=== PATIENT | female | born 1965 | race Caucasian/White ===

== ENCOUNTER → 2018-03-12 | Outpatient (CLI) | payer OTHER ==
--- NOTE | 2018-03-18 13:28 | Diagnostic Imaging Report ---
INDICATION: Routine screening. COMPARISON: 04/27/2016 and 06/09/2014. TECHNIQUE: 2D and 3D bilateral screening mammography was performed with CAD. FINDINGS: Scattered fibroglandular densities are identified bilaterally. There is a focal density in the left breast just lateral to the nipple line on the CC view at posterior depth which appears more prominent when compared with prior mammograms. Additional views of this area are recommended. No definite correlate on the MLO view is seen. No other suspicious abnormality is seen. No malignant appearing microcalcifications are identified. The axillae are unremarkable. IMPRESSION: Left breast density. Additional views are recommended for further evaluation. ACR BI-RADS Category 0: Incomplete. (Needs additional imaging evaluation). Result letter will be mailed to the patient. Note: At least 10% of breast cancer is not imaged by mammography. Dictated by: Dictated on workstation # [id number]
== END ==
LOC: RAD 07:27
PROVIDERS: ATTEND Nurse Practitioner Family
DX: Z12.31 Encounter for screening mammogram for malignant neoplasm of breast (principal); R92.8 Other abnormal and inconclusive findings on diagnostic imaging of breast
CPT/HCPCS: 77067

== ENCOUNTER → 2018-04-28 | Outpatient (CLI) | payer OTHER ==
--- NOTE | 2018-04-28 20:00 | Diagnostic Imaging Report ---
EXAM: Ultrasound of the left breast. INDICATION: Abnormal mammogram The screening mammogram performed on 03/12/2018 suggested a focal density in the left breast just lateral to the nipple line. On the diagnostic mammogram performed earlier today, this density did not seem quite as conspicuous but is seen to persist. On this study, there is a small 4 mm hypoechoic area with shadowing in the 2 o'clock position of the breast roughly 4 cm from the nipple. This finding may correspond to the density seen on the mammogram and this lesion is suspicious for a malignant process. If further imaging is desired, MRI would be recommended. An ultrasound guided biopsy could also be attempted to establish a tissue diagnosis. IMPRESSION: 1. There is a small hypoechoic lesion in the 2 o'clock position of the left breast roughly 4 cm from the nipple. This finding is suspicious for malignancy. Recommendations as above. These results will be discussed with Dr. Medina. ACR BI-RADS Category 4: Suspicious abnormality. Result letter will be mailed to the patient. Note: At least 10% of breast cancer is not imaged by mammography. Dictated by: Dictated on workstation # [id number]
--- NOTE | 2018-04-29 20:55 | Diagnostic Imaging Report ---
INDICATION: Unilateral diagnostic left mammogram. The current study was also evaluated with a Computer Aided Detection (CAD) system. FINDINGS: The screening mammogram performed on 03/12/2018 noted a focal density in the lateral aspect of the left breast on the craniocaudad view. This density is not as conspicuous on the compression and rolled views and may merely be secondary to superimposition of the heterogeneously dense fibroglandular tissue in this area. However, there is a suggestion of a small area of increased density in the superior aspect of the breast on the MLO view which may correspond to the finding of the screening mammogram. Ultrasound would be recommended for further evaluation of this portion of the left breast. IMPRESSION: There is no definite evidence for malignancy. Even so, ultrasound would be recommended for further evaluation. ACR BI-RADS Category 0: Incomplete. (Needs additional imaging evaluation). Result letter will be mailed to the patient. Note: At least 10% of breast cancer is not imaged by mammography. Dictated by: Dictated on workstation # [id number]
== END ==
LOC: RAD 12:54
PROVIDERS: ATTEND Nurse Practitioner Family
DX: R92.8 Other abnormal and inconclusive findings on diagnostic imaging of breast (principal); L98.9 Disorder of the skin and subcutaneous tissue, unspecified
CPT/HCPCS: 76641

== ENCOUNTER → 2018-05-29 | Outpatient (CLI) | payer OTHER ==
[~2018-05-29] MED LIST: GADOBUTROL 10 MMOL/10 ML (GADAVIST) VIAL IV ONE
--- NOTE | 2018-05-30 19:26 | Diagnostic Imaging Report ---
EXAMINATION: MRI Breast Bilateral W/WO Contrast with 3D CAD TECHNIQUE: Utilizing a 1.5 Mei magnet, the patient was placed in a prone position with an 8-channel dual breast coil utilized. Axial STIR precontrasted and axial T1 fat-sat post contrast high-resolution images were obtained. Axial T2-weighted images precontrast bilaterally were performed as well. Axial vibrant temporal images were obtained pre and post contrast with bolus technique utilizing gadolinium. Images were post contrast immediately and subsequently for 7 minutes. Pre and post contrasted images were then evaluated with CADstream for evaluation of possible angiogenesis. INDICATION: Irregular left breast mass recently demonstrated on ultrasound, felt to correlate to mammographic abnormality. COMPARISON: Comparison is made to screening mammograms dating back to 2014, as well as recent diagnostic mammogram and ultrasound performed on 04/29/2018. No prior breast MRI is available for comparison. FINDINGS: RIGHT BREAST: The parenchyma is composed of scattered fibroglandular tissue. There is minimal background enhancement. There is no suspicious mass or non-mass enhancement. There is a prominent internal mammary chain lymph node, which measures up to 5 mm in short axis diameter (image 191 series 9). Multiple morphologically normal lymph nodes are demonstrated in the right axilla, all of which demonstrate normal fatty deirdre. LEFT BREAST: The parenchyma is composed of scattered fibroglandular tissue. There is minimal background enhancement. There is no suspicious mass or non-mass enhancement. There are mildly prominent lymph nodes in the left axilla which appear to have lost their normal fatty deirdre. [employer] lymph nodes are rounded lymph node in the lower axilla measuring 7 mm (image 118 series 9) and a lymph node located more superiorly in the axilla measuring 6 mm (image 53 series 9). There is an internal mammary chain node which measures 4 mm in short axis diameter (image 181, series 9). IMPRESSION: RIGHT BREAST: No MR evidence of malignancy in the right breast. Prominent internal mammary chain lymph node. This is of indeterminate etiology or clinical significance. Further management will be dictated by left breast biopsy results. LEFT BREAST: There is no MRI finding to correspond to the recent mammographic and sonographic findings in the left breast. Although there is no concerning lesion in the left breast on MRI, this should not preclude further evaluation with ultrasound-guided biopsy of the irregular left breast mass, as previously mentioned. Prominent lymph nodes are demonstrated in the left axilla, which appear to have lost their fatty deirdre. This may be artifactual in nature due to plane of imaging, however, second look (MRI directed) ultrasound is recommended for further evaluation. Small internal mammary chain lymph node measuring 4 mm. As above, this is of indeterminate etiology or clinical significance and further management will be dictated by left breast biopsy results. FINAL ASSESSMENT: BI-RADS ATLAS Category 0: Incomplete - Need Additional Imaging Evaluation RECOMMENDATIONS: As prescribed in the previous left breast ultrasound report, an ultrasound-guided biopsy of the irregular left breast mass is recommended. Ultrasound of the left axilla to evaluate for enlarged lymph nodes. Further evaluation of bilateral internal mammary chain lymph nodes will be based on left breast biopsy results. Dictated by: Dictated on workstation # [id number]
== END ==
LOC: RAD 08:49
PROVIDERS: ATTEND Family Medicine
DX: N63.20 Unspecified lump in the left breast, unspecified quadrant (principal); R59.0 Localized enlarged lymph nodes
CPT/HCPCS: 77049

== ENCOUNTER → 2018-06-18 | Day surgery (SDC) | payer OTHER ==
[~2018-06-18] MED LIST changes: -GADOBUTROL 10 MMOL/10 ML (GADAVIST) VIAL IV ONE; +LIDOCAINE 1% INJ 20 ML 20 ML VIAL INJ ONE
--- OUTSIDE RECORDS SUMMARY | 2018-06-18 08:58 | XMS REPORT | Continuity of Care Document ---
Author Author [facility] Organization [facility] Address Unknown Phone Unavailable Allergies Active Description Code Type Severity Reaction Onset Reported/Identified Relationship to Patient Clinical Status Yes Bactrim Drug N/A Rash Yes Phenergan N/A Unable to swall Yes No Allergy Information Available [id number] Drug Allergy Unknown N/A 2018 Medications There is no data. Problems Date Dx Coded Attending Type Code Diagnosis Diagnosed By 03/20/2018 JAYME BOYD Ot R92.8 OTH ABN AND INCONCLUSIVE FINDINGS ON DX 03/20/2018 JAYME BOYD Ot Z12.31 ENCNTR SCREEN MAMMOGRAM FOR MALIGNANT NE 05/09/2018 JAYME BOYD Ot L98.9 DISORDER OF THE SKIN AND SUBCUTANEOUS TI 05/09/2018 JAYME BOYD Ot R92.8 OTH ABN AND INCONCLUSIVE FINDINGS ON DX 05/09/2018 JAYME BOYD Ot L98.9 DISORDER OF THE SKIN AND SUBCUTANEOUS TI 05/09/2018 JAYME BOYD Ot R92.8 OTH ABN AND INCONCLUSIVE FINDINGS ON DX 06/02/2018 DURAN DAVIS DO Ot N63.20 UNSPECIFIED LUMP IN THE LEFT BREAST, UNS 06/02/2018 DURAN DAVIS DO Ot R59.0 LOCALIZED ENLARGED LYMPH NODES Procedures There is no data. Results There is no data. Encounters ACCT No. Visit Date/Time Discharge Status Pt. Type Provider Facility Loc./Unit Complaint [id number] 10/20/2014 00:00:00 10/20/2014 23:59:59 CLS Outpatient Scanned Documents [id number] 05/29/2018 08:49:00 05/29/2018 23:59:59 CLS Outpatient DURAN DAVIS DO [facility] RAD ABNORMAL MAMMOGRAM OF LEFT BREAST [id number] 05/23/2018 09:00:00 05/23/2018 23:59:59 CLS Preadmit JAYME BOYD [facility] RAD SCREENING [id number] 04/28/2018 12:54:00 04/28/2018 23:59:59 CLS Outpatient JAYME BOYD [facility] RAD R92.8 ABN MAMMO [id number] 03/12/2018 07:27:00 03/12/2018 23:59:59 CLS Outpatient JAYME BOYD [facility] RAD SCREENING Z12.31 [id number] 06/18/2018 08:50:00 ACT Outpatient DUARN DAVIS DO [facility] RAD ABN MAMMO LT BREAST
--- OUTSIDE RECORDS SUMMARY | 2018-06-18 08:58 | XMS REPORT ---
Author Author KLEVER CAI Organization [facility] Address [address] [place] [address] Care Team Providers Care Geochemical Manager Name Role Phone KLEVER CAI Unavailable PROBLEMS Unknown Problems ALLERGIES Substance Reaction Event Type Date Status Phenergan Unknown Drug Allergy Jan, Active Bactrim DS rash Drug Allergy Jan, Active ENCOUNTERS Encounter Location Date Diagnosis [facility] [address] [facility] [id number] [place] [address] Jan Burning with urination R30.0 IMMUNIZATIONS No Known Immunizations SOCIAL HISTORY Never Assessed REASON FOR VISIT Possible UTI. MEGAN robles PLAN OF CARE Activity Details Follow Up prn Reason: VITAL SIGNS Height 5'10" in 2017-02-01 Weight 205 lbs 2017-02-01 Temperature 98.7 degrees Fahrenheit 2017-02-01 Heart Rate 85 bpm 2017-02-01 Respiratory Rate 18 2017-02-01 BMI 29.41 kg/m2 2017-02-01 Blood pressure systolic 115 mmHg 2017-02-01 Blood pressure diastolic 75 mmHg 2017-02-01 MEDICATIONS Medication Instructions Dosage Frequency Start Date End Date Duration Status Cipro 500 mg Orally Twice a day 1 tablet 12h Jan, Jan, 05 days Active RESULTS No Results PROCEDURES Procedure Date Ordered Result Body Site URINALYSIS, AUTO, W/O SCOPE Feb 01, 2017 URINE CULTURE/COLONY COUNT Feb 01, 2017 INSTRUCTIONS MEDICATIONS ADMINISTERED No Known Medications MEDICAL (GENERAL) HISTORY Type Description Date Surgical History cranial decompression Surgical History c1 laminectomy Surgical History hysterectomy Surgical History cholecystectomy Hospitalization History surgeries
== END ==
LOC: RAD 08:50
PROVIDERS: ATTEND Family Medicine
DX: R92.8 Other abnormal and inconclusive findings on diagnostic imaging of breast (principal); Z53.8 Procedure and treatment not carried out for other reasons

== ENCOUNTER → 2018-12-03 | Outpatient (CLI) | payer OTHER ==
--- NOTE | 2018-12-03 18:46 | Diagnostic Imaging Report ---
INDICATION: Six-month followup left breast density. COMPARISON: Correlation is made with prior left mammograms from 04/28/2018 and 03/12/2018. TECHNIQUE: Unilateral left 2-D and 3-D diagnostic mammography was performed. The current study was also evaluated with a Computer Aided Detection (CAD) system. 3-D tomosynthesis was also performed and reviewed. FINDINGS: Scattered fibroglandular densities are identified in the left breast. The area of solid nodular density noted just lateral to the nipple line at mid to posterior depth on the prior CC view is not as prominent on today's study. Only fibroglandular tissue is seen in this area. The area of nodularity in the superior left breast on the left MLO view is less prominent as well. No underlying mass is seen. No suspicious microcalcifications are seen. Left axilla is stable. IMPRESSION: No mammographic features suspicious for malignancy are identified. However, as per prior recommendation from MRI report, additional followup left breast ultrasound of the 4 mm nodule at the 2 o'clock location is recommended. In addition, evaluation of the left axilla is recommended with ultrasound as per prior MRI breast report. Ultrasound will be performed today. ACR BI-RADS Category 0: Incomplete. (Needs additional imaging evaluation). Result letter will be mailed to the patient. Note: At least 10% of breast cancer is not imaged by mammography. Dictated by: Dictated on workstation # [id number]
--- NOTE | 2018-12-03 18:56 | Diagnostic Imaging Report ---
INDICATION: Left breast nodule. COMPARISON: Correlation is made with prior mammograms from 03/12/2018, 04/28/2018 and 12/03/2018 in additional to prior ultrasound from 04/28/2018 and breast MRI from 05/29/2018. EXAMINATION: Sonographic interrogation of the upper outer left breast was performed. Specifically, the 2 o'clock location, 4 cm from the nipple, was evaluated. FINDINGS: No discrete mass is identified on today's study. No sonographic abnormality is identified. The nodule in question at this location on prior ultrasound from April is not appreciated on today's study. This area may have represented fibroglandular tissue. No new abnormality is identified. Left axilla was also evaluated. Only fatty appearing lymph nodes are present with thin overlying cortex. No suspicious axillary lymph nodes are present. IMPRESSION: No suspicious sonographic abnormality is identified. In addition, no suspicious abnormalities were visualized on breast MRI from 05/29/2018. Findings noted sonographically in April 2018 may have been artifactual as no underlying lesion is seen. Despite this, one additional followup left mammogram and left breast ultrasound in six months is recommended to ensure stability. ACR BI-RADS Category 3: Probably benign findings. Result letter will be mailed to the patient. Note: At least 10% of breast cancer is not imaged by mammography. Dictated by: Dictated on workstation # [id number]
== END ==
LOC: RAD 12:25
PROVIDERS: ATTEND Nurse Practitioner Family
DX: N63.21 Unspecified lump in the left breast, upper outer quadrant (principal)
CPT/HCPCS: 76642

== ENCOUNTER → 2019-09-04 | Outpatient (CLI) | payer OTHER ==
--- NOTE | 2019-09-04 21:07 | Diagnostic Imaging Report ---
INDICATION: Follow-up left breast. COMPARISON: Exam compared with mammograms of 11/2018, 03/2018, 04/2018 and 04/2016. FINDINGS: 2D and 3D digital mammography with CAD performed. The current study was also evaluated with a Computer Aided Detection (CAD) system. FINDINGS: There is some mild residual density in the posterior depth left breast slightly lateral over the nipple line and superiorly. When this was reviewed at tomosynthesis sequences, there was a confluence of parenchymal elements towards that point with no true mass. Separately performed targeted ultrasound showed no evidence for mass. Skin, nipples and axilla are within normal limits. No microcalcifications. IMPRESSION: 1. Benign findings, as described. 2. Assuming the absence of adverse interval clinical changes, patient could be returned to routine bilateral screening next due in one years' time. ACR BI-RADS Category 2: Benign findings. Result letter will be mailed to the patient. Note: At least 10% of breast cancer is not imaged by mammography. Dictated by: Dictated on workstation # [id number]
--- NOTE | 2019-09-04 21:08 | Diagnostic Imaging Report ---
INDICATION: Indeterminate left breast density. COMPARISON: Ultrasound of 11/2018 as well as 04/28/2018. FINDINGS: The original hypoechoic shadowing focus seen in April is again resolved. Some heterogeneous fibrous tissue in the axillary tail is unchanged. No mass or suspicious finding. IMPRESSION: Benign findings, as described. ACR BI-RADS Category 2: Benign findings. Result letter will be mailed to the patient. Note: At least 10% of breast cancer is not imaged by mammography. Dictated by: Dictated on workstation # [id number]
== END ==
LOC: RAD 12:33
PROVIDERS: ATTEND Nurse Practitioner Adult Health
DX: N63.20 Unspecified lump in the left breast, unspecified quadrant (principal)
CPT/HCPCS: 76642; 77062; 77066

== ENCOUNTER 2020-01-12 11:25 | Emergency (ER) | payer OTHER ==
[~2020-01-12] VITALS: Ht 167.7 cm; Wt 90.9 kg
[2020-01-12] MEDS ORDERED: ORPHENADRINE 60 MG/2 ML (NORFLEX) AMP (ED ONLY) IM ONE (12:00)
[2020-01-12] MEDS ORDERED: KETOROLAC 60 MG/2 ML VIAL IM ONE (12:00)
--- NOTE | 2020-01-12 12:04 | ED Neck-Back Pain/Injury ---
General Stated Complaint: NECK PAIN Source of Information: Patient Exam Limitations: No Limitations History of Present Illness Date Seen by Provider: Jan 12, 2020 Time Seen by Provider: 11:44 Initial Comments Patient presents ER by private conveyance with chief complaint last 2 days progressively worsening spasm of the muscles of her neck and pain in her neck. She says she was lifting something heavy she's not supposed to and cause an aggravation of her old neck injury. She had an Arnold-Chiari malformation surgically worked on about 8 years ago and ever since then has had occasional bouts of neck pain. She's said that her last bout was about 3 years ago. Occasional for her neck spasms she will use Skelaxin that she gets from Dr. Susan faye in [place]. She has a follow-up appointment scheduled. She also occasionally uses naproxen and took Excedrin and aspirin this morning. She says aspirin seems to help the best. She's not having any weakness numbness or loss of control of bowel or bladder falls. She did take Skelaxin in the wee hours of the morning. She's had difficulty sleeping because of the pain. Allergies and Home Medications Allergies Coded Allergies: No Allergy Information Available (Unverified , 05/29/18) Patient Home Medication List Home Medication List Reviewed: Yes Review of Systems Constitutional: No chills, No diaphoresis EENTM: No ear discharge, No ear pain Respiratory: No cough, No short of breath Cardiovascular: No edema, No Hx of Intervention Gastrointestinal: No abdominal pain, No nausea Genitourinary: No discharge, No dysuria All Other Systems Reviewed Negative Unless Noted: Yes Past Wyjynau-Qngvra-Egxuae Hx Patient Social History Alcohol Use: Denies Use Recreational Drug Use: No Smoking Status: Never a Smoker Physical Exam Vital Signs Capillary Refill : Height, Weight, BMI Height: '" Weight: lbs. oz. kg; BMI Method: General Appearance: WD/WN, Mild Distress HEENT: PERRL/EOMI, Pharynx Normal, Moist Mucous Membranes Neck: Limited Range of Motion (secondary to pain), Tender Lateral, Other (bilateral paraspinous muscle tenderness and trapezius spasm) Cardiovascular: Regular Rate, Rhythm, No Edema, Normal Peripheral Pulses Respiratory: No Accessory Muscle Use, No Respiratory Distress Peripheral Pulses: 2+ Radial Pulses (R), 2+ Radial Pulses (L) Neurologic/Psychiatric: Alert, Oriented x3 Progress/Results/Core Measures Progress Progress Note : Time: 12:04 Progress Note Norflex, Toradol and prednisone. We've encouraged her to follow up with physical therapy. She is familiar Karla. She has a follow-up appointment with primary care. Departure Impression Primary Impression: Marleenmarlen Disposition: HOME, SELF-CARE Condition: Stable Departure-Patient Inst. Decision time for Depature: 12:05 Referrals: DURAN DAVIS DO (PCP/Family) Primary Care Physician Patient Instructions: Marleen (VIVIEN) Add. Discharge Instructions: Call physical therapy and request follow-up. Keep your follow-up appointment with primary care doctor. NSAIDs such as naproxen 2 tablets twice a day on a scheduled basis. Tylenol 1000 mg every 8 hours as necessary for pain. Prednisone 2 tablets daily for the next 5 days. Return to the ER for having weakness, numbness, loss of control of bowel or bladder or inability to walk. Scripts Prednisone (Prednisone) 20 Mg Tab 40 MG PO DAILY, #10 TAB 0 Refills Prov: MARY LIVINGSTON 01/12/20 Work/School Note: Work Release Form Date Seen in the Emergency Department: Jan 12, 2020 Return to Work: Jan 18, 2020 Restrictions: No Restrictions MARY LIVINGSTON Jan 12, 2020 12:04
[2020-01-12] MEDS ORDERED: PRD20T PO (12:07)
[2020-01-12 12:31] VITALS: BP 180/99
== END 2020-01-12 12:35 | disposition home or self-care (01) ==
LOC: EDUNIT# 11:25 → ER 11:26
DX: M43.6 Torticollis (principal)
CPT/HCPCS: 99284

== ENCOUNTER → 2020-06-08 | Outpatient (CLI) | payer OTHER ==
[~2020-06-08] MED LIST changes: -LIDOCAINE 1% INJ 20 ML 20 ML VIAL INJ ONE; +PRD20T PO
--- NOTE | 2020-06-08 12:38 | Diagnostic Imaging Report ---
INDICATION: History of surgery to the neck with chronic neck pain and headaches. TECHNIQUE: AP, lateral, bilateral oblique, and odontoid views cervical spine.. CORRELATION STUDY: None. FINDINGS: The cervical spinal alignment is anatomic. Cervical vertebral body heights and disc spaces overall are fairly well maintained. Lateral masses of C1 and C2 aligned, odontoid intact. Left oblique projection somewhat suboptimal. Neuroforamina, however, appear to be fairly well-maintained. Various degrees of hypertrophic facet arthropathy are present. Prevertebral soft tissues unremarkable. Underlying dental caries questioned. IMPRESSION: Negative for acute findings of the cervical spine. Mildly advanced multilevel cervical spondylosis with scattered hypertrophic facet arthropathy. Dictated by: Dictated on workstation # [id number]
== END ==
LOC: RAD 11:28
PROVIDERS: ATTEND Hospitalist
DX: M47.812 Spondylosis without myelopathy or radiculopathy, cervical region (principal); Z98.890 Other specified postprocedural states
CPT/HCPCS: 72050

== ENCOUNTER → 2021-07-10 | Outpatient (CLI) | payer OTHER ==
--- NOTE | 2021-07-10 13:27 | Diagnostic Imaging Report ---
INDICATION: Routine screening. COMPARISON: 09/04/2019 and 03/12/2018. TECHNIQUE: 2D and 3D bilateral screening mammography was performed with CAD. FINDINGS: Scattered fibroglandular densities are identified bilaterally. A nodular density in the lower outer right breast is stable and most consistent with benign etiology. No spiculated mass or malignant-appearing microcalcifications are seen. The axillae are unremarkable. IMPRESSION: No mammographic features suspicious for malignancy are identified. ACR BI-RADS Category 2: Benign findings. Result letter will be mailed to the patient. Note: At least 10% of breast cancer is not imaged by mammography. Dictated by: Dictated on workstation # [id number]
== END ==
LOC: RAD 09:00
PROVIDERS: ATTEND Hospitalist
DX: Z12.31 Encounter for screening mammogram for malignant neoplasm of breast (principal)
CPT/HCPCS: 77063; 77067

== ENCOUNTER 2021-08-17 00:44 | Emergency (ER) | payer OTHER ==
[~2021-08-17] VITALS: Ht 177.8 cm; Wt 90.9 kg
--- NOTE | 2021-08-17 01:12 | ED Cough/URI ---
General Chief Complaint: Respiratory Problems Stated Complaint: WHEEZING Source: patient History of Present Illness Date Seen by Provider: August 17, 2021 Time Seen by Provider: 01:06 Initial Comments PT ARRIVES VIA POV FROM HOME C/O COLD SYMPTOMS/NON-PRODUCTIVE COUGH X 1 WEEK COUGH IS KEEPING HER UP AT NIGHT, AND SHE WHEEZES WHEN SHE LAYS DOWN. NO WHEEZING OTHERWISE HAS ALOT OF CLEAR NASAL DRAINAGE NO FEVER NO CHEST PAIN NO SHORTNESS OF BREATH C/O HEADACHE C/O BODY ACHES NO GI SYMPTOMS NO LOSS OF TASTE/SMELL PT HAD NEGATIVE HOME COVID TEST 3-4 DAYS AGO PT HAD COVID IN MAY--NO TREATMENT PT HAS HAD COVID VACCINE X 3, AND FLU VACCINE FOR THIS SEASON TRIED NYQUIL AND MUCINEX WITHOUT RELIEF. PCP: DR. DAVIS IN [place] Allergies and Home Medications Allergies Coded Allergies: promethazine (Verified Allergy, Unknown, 01/13/20) Patient Home Medication List Home Medication List Reviewed: Yes Benzonatate (Tessalon Perles) 100 Mg Capsule, 200 MG PO TID Prescribed by: FROY TINAJERO on 08/17/21145 Doxycycline Hyclate (Doxycycline Hyclate) 100 Mg Tablet, 100 MG PO BID Prescribed by: FROY TINAJERO on 08/17/21145 Guaifenesin/Dextromethorphan (Mucinex Dm ER 1,200-60 mg Tab) 1,200 Mg-60 Mg Tbmp .12hr, 1 EACH PO BID Prescribed by: FROY TINAJERO on 08/17/21145 Methylprednisolone (Medrol) 4 Mg Tab.ds.pk, 4 MG PO UD Prescribed by: FROY TINAJERO on 08/17/21145 Prednisone (Prednisone) 20 Mg Tab, 40 MG PO DAILY Prescribed by: MARY LIVINGSTON on 01/12/20 1207 Triamcinolone Acetonide (Nasacort) 55 Mcg [place], 2 SPRAYS NS BID Prescribed by: FROY TINAJERO on 08/17/21 015 Review of Systems Review of Systems Constitutional: no symptoms reported EENTM: nose congestion; No throat pain Respiratory: see HPI, cough, wheezing Cardiovascular: no symptoms reported; No chest pain Gastrointestinal: no symptoms reported Genitourinary: no symptoms reported Musculoskeletal: see HPI (BODY ACHES) Skin: no symptoms reported Psychiatric/Neurological: See HPI, Headache Hematologic/Lymphatic: No Symptoms Reported Immunological/Allergic: no symptoms reported Past Mtgiojc-Gcrjyl-Rdbmrd Hx Patient Social History Tobacco Use?: Yes Tobacco type used: Cigarettes Smoking Status: Former Smoker (YEARS AGO) Substance use?: No Alcohol Use?: No Past Medical History Surgeries: Yes Gallbladder, Hysterectomy, Orthopedic Respiratory: No Cardiac: No 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 oz. kg; 32.00 BMI Method: General Appearance: WD/WN, no apparent distress HEENT: PERRL/EOMI, TMs normal, pharynx normal, other (NASAL CONGESTION, CLEAR RHINORRHEA. 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 tested, no motor/sensory deficits, alert, normal mood/affect, oriented x 3 Skin: normal color, warm/dry; No rash Progress/Results/Core Measures Suspected Sepsis SIRS Temperature: Pulse: Respiratory Rate: Blood Pressure / Mean: Results/Orders Lab Results Laboratory Tests Test 08/17/21 01:05 Range/Units Influenza Type A (RT-PCR) Not Detected Not Detecte Influenza Type B (RT-PCR) Not Detected Not Detecte SARS-CoV-2 RNA (RT-PCR) Not Detected Not Detecte My Orders Orders - FROY TINAJERO DO Chest 1 View, Ap/Pa Only (08/17/21 01:06) Covid 19 Inhouse Test (08/17/21 01:06) Influenza A And B By Pcr (08/17/21 01:06) Isolation Central Supply Req (08/17/21 01:06) Rx-Albuterol Inhaler (Rx-Ventolin Hfa In (08/17/21 01:43) Rx-Doxycycline Tablet (Rx-Vibramycin Tab (08/17/21 01:43) Benzonatate Capsule (Tessalon Perles) (08/17/21 09:00) Benzonatate Capsule (Tessalon Perles) (08/17/21 01:54) Vital Signs/I&O 08/17/21 08/17/21 01:00 02:00 Temp 36.2 36.2 Pulse 96 81 Resp 16 16 B/P (MAP) 175/103 (127) 167/102 Pulse Ox 97 97 O2 Delivery Room Air Room Air Capillary Refill : Progress Note : Progress Note PLACED IN ISOLATION ROOM PPE WORN COVID AND FLU TESTING DONE UNEVENTFUL ER STAY NO HYPOXIA NO FEVER NO DYSPNEA OR WHEEZING RARE NONPRODUCTIVE COUGH. Diagnostic Imaging Comments CXR--NO ACUTE PROCESS, PENDING RADIOLOGIST REVIEW Reviewed: Reviewed by Me Departure Impression Primary Impression: Upper respiratory infection Additional Impression: Acute bronchitis Disposition: HOME, SELF-CARE Condition: Stable Departure-Patient Inst. Decision time for Depature: 01:44 Referrals: DURAN DAVIS DO (PCP/Family) Primary Care Physician Patient Instructions: Acute Bronchitis, Adult (DC), Upper Respiratory Infection ED, How to Use a Metered Dose Inhaler ED Add. Discharge Instructions: USE ALBUTEROL INHALER WITH SPACER--2 PUFFS EVERY 4 HOURS NEEDED LOTS OF CLEAR LIQUIDS TYLENOL AND MOTRIN NEEDED FOR PAIN OR FEVER FOLLOW UP WITH YOUR DR IN 3-4 DAYS IF NO BETTER All discharge instructions reviewed with patient and/or family. Voiced understanding. Scripts Triamcinolone Acetonide (Nasacort) 55 Mcg [place] 2 SPRAYS NS BID, #1 SPRAY Prov: FROY TINAJERO DO 08/17/21 Guaifenesin/Dextromethorphan (Mucinex Dm ER 1,200-60 mg Tab) 1,200 Mg-60 Mg Tbmp.12hr 1 EACH PO BID, #20 EA Prov: FROY TINAJERO DO 08/17/21 Benzonatate (TESSALON PERLES) 100 Mg Capsule 200 MG PO TID, #30 CAP Prov: FROY TINAJERO DO 08/17/21 Methylprednisolone (Medrol) 4 Mg Tab.ds.pk 4 MG PO UD for 6 Days, #21 PKG PER DOSE PACK INSTRUCTIONS Prov: FROY TINAJERO DO 08/17/21 Doxycycline Hyclate (Doxycycline Hyclate) 100 Mg Tablet 100 MG PO BID, #20 TAB 0 Refills Prov: FROY TINAJERO DO 08/17/21 Work/School Note: Work Release Form Date Seen in the Emergency Department: August 16, 2021 Return to Work: August 21, 2021 FROY TINAJERO DO August 17, 2021 01:12
[2021-08-17] MEDS ORDERED: RX-DOXYCYCLINE 100 MG (VIBRAMYCIN) TAB PPK#2 PO STA (01:43)
[2021-08-17] MEDS ORDERED: RX-ALBUTEROL INHALER 8.5 GM HFA (PROAIR) IH STA (01:43)
[2021-08-17] MEDS ORDERED: METH4TAB PO (01:46)
[2021-08-17] MEDS ORDERED: BENZ100C18 PO (01:46)
[2021-08-17] MEDS ORDERED: DOXY100T2 PO (01:46)
[2021-08-17] MEDS ORDERED: GUAI1TBM19 PO (01:46)
[2021-08-17] MEDS ORDERED: TRIA10.8 NS (01:50)
[2021-08-17] MEDS ORDERED: BENZONATATE 100 MG (TESSALON) CAPSULE PO ONE (01:54)
[2021-08-17 02:00] VITALS: BP 167/102
--- NOTE | 2021-08-17 05:30 | Diagnostic Imaging Report ---
Indication: Cough Portable chest 1:28 AM Heart size and pulmonary vascularity are normal. Lungs are clear. There are no effusions or pneumothoraces. IMPRESSION: No acute abnormalities in the chest Dictated by: Dictated on workstation # [id number]
[2021-08-17] MEDS ORDERED: BENZONATATE 100 MG (TESSALON) CAPSULE PO SCH (09:00)
== END 2021-08-17 02:02 | disposition home or self-care (01) ==
LOC: EDUNIT# 00:44 → ER 00:47
DX: J20.9 Acute bronchitis, unspecified (principal); J06.9 Acute upper respiratory infection, unspecified; Z20.822 Contact with and (suspected) exposure to COVID-19; Z87.891 Personal history of nicotine dependence
CPT/HCPCS: 71045; 87636

== ENCOUNTER 2021-11-21 20:44 | Observation (INO) | payer OTHER ==
[~2021-11-21] VITALS: Ht 177.8 cm; Wt 97.0 kg
[~2021-11-21 20:44] MED LIST changes: +BENZ100C18 PO; +DOXY100T2 PO; +GUAI1TBM19 PO; +METH4TAB PO; +TRIA10.8 NS
[2021-11-21] MEDS ORDERED: ONDANSETRON 4 MG/2 ML (SDV) Z0FRAN IVP ONE (21:45)
[2021-11-21] MEDS ORDERED: LACTATED RINGERS 1,000 ML IV ONE (21:45)
[2021-11-21 21:52] LABS: ALBUMIN 4.1 GM/DL (3.2-4.5)
[2021-11-21 21:53] LABS: BASOPHILS % (AUTO) 1 % (0-10); EOSINOPHILS # (AUTO) 0.1 10^3/uL (0.0-0.3); EOSINOPHILS % (AUTO) 2 % (0-10); HEMATOCRIT 37 % (35-52); HEMOGLOBIN 12.5 g/dL (11.5-16.0); LYMPHOCYTES # (AUTO) 2.8 10^3/uL (1.0-4.0); LYMPHOCYTES % (AUTO) 38 % (12-44); MEAN CORPUSCULAR HEMOGLOBIN 29 pg (25-34); MEAN CORPUSCULAR HGB CONC 34 g/dL (32-36); MEAN CORPUSCULAR VOLUME 86 fL (80-99); MEAN PLATELET VOLUME 10.7 fL (9.0-12.2); MONOCYTES # (AUTO) 0.5 10^3/uL (0.0-1.0); MONOCYTES % (AUTO) 7 % (0-12); NEUTROPHILS # (AUTO) 3.9 10^3/uL (1.8-7.8); NEUTROPHILS % (AUTO) 54 % (42-75); PLATELET COUNT 244 10^3/uL (130-400); WHITE BLOOD COUNT 7.3 10^3/uL (4.3-11.0)
[2021-11-21 21:56] LABS: BILIRUBIN,TOTAL 0.5 MG/DL (0.1-1.0)
[2021-11-21 21:58] LABS: CREATININE SERUM 1.05 MG/DL (0.60-1.30)
[2021-11-21] MEDS ORDERED: POTASSIUM CL 10MEQ/50ML IVPB 50 ML IV ONE (22:00)
[2021-11-21] MEDS ORDERED: NS IV 1000 ML 1,000 ML IV SCH (22:00)
--- NOTE | 2021-11-21 22:10 | Diagnostic Imaging Report ---
PROCEDURE: CT head wo r/o stroke. TECHNIQUE: Multiple contiguous axial images were obtained through the brain without the use of intravenous contrast. Auto Exposure Controls were utilized during the CT exam to meet ALARA standards for radiation dose reduction. INDICATION: 56-year-old female, sudden onset severe headache, nausea and vomiting, history of migraines. CORRELATION: None FINDINGS: There is no midline shift or mass effect. The ventricles and sulci are unremarkable. No evidence for acute intracranial hemorrhage, abnormal extra-axial fluid collections or cerebral edema is present. The basilar cisterns are unremarkable. The bony calvarium is intact. Incomplete closure posterior C1 arch, likely developmental. The visualized paranasal sinuses and mastoid air cells are clear. IMPRESSION: Negative appearing noncontrast CT of the head. Dictated by: Dictated on workstation # [id number]
[2021-11-21] MEDS ORDERED: KETOROLAC 30 MG/ML VIAL IVP ONE (22:15)
[2021-11-21] MEDS ORDERED: fentaNYL INJ 100 MCG/2 ML AMP IVP ONE (23:45)
[2021-11-21] MEDS ORDERED: SCOPOLAMINE 1.5 MG (TRANSDERM-SCOP) PATCH TD ONE (23:45)
[2021-11-21 23:52] LABS: BILIRUBIN,URINE NEGATIVE (NEGATIVE); CLARITY,URINE CLEAR; COLOR,URINE YELLOW; GLUCOSE, URINE (UA) NEGATIVE (NEGATIVE); KETONES,URINE NEGATIVE (NEGATIVE); LEUKOCYTE ESTERASE ,URINE NEGATIVE (NEGATIVE); NITRITE,URINE NEGATIVE (NEGATIVE); PROTEIN,URINE NEGATIVE (NEGATIVE)
[2021-11-22 00:03] LABS: BACTERIA,URINE NEGATIVE /HPF
--- NOTE | 2021-11-22 00:16 | ED General ---
General Chief Complaint: Abdominal/GI Problems Stated Complaint: NAUSEA Nursing Triage Note: pt presents with sudden onset of n/v/d 30 minutes prior to arrival. reports it hit her all of a sudden. reports severe h/a. reports photophobia. Source of Information: Patient Exam Limitations: No Limitations History of Present Illness Date Seen by Provider: Nov 21, 2021 Time Seen by Provider: 21:08 Initial Comments This a 56-year-old woman presents to the emergency room with abrupt onset of nausea, vomiting, diarrhea, and headache at dinnertime this evening. She feels off balance and lightheaded. She denies vertigo. She states symptoms started with a flushed feeling followed by a pounding headache followed by the vomiting and diarrhea. She has history of migraines and has had increased frequency and headaches recently with about 4 headaches in the past 10 days. She has history of surgery for correction of a Chiari malformation. Dr. Medina is her primary care doctor. She reports having a couple beers at suppertime. Allergies and Home Medications Allergies Coded Allergies: promethazine (Verified Allergy, Unknown, 01/13/20) Patient Home Medication List Home Medication List Reviewed: Yes Benzonatate (Tessalon Perles) 100 Mg Capsule, 200 MG PO TID Prescribed by: FROY TINAJERO on 08/17/21145 Doxycycline Hyclate (Doxycycline Hyclate) 100 Mg Tablet, 100 MG PO BID Prescribed by: FROY TINAJERO on 08/17/21145 Guaifenesin/Dextromethorphan (Mucinex Dm ER 1,200-60 mg Tab) 1,200 Mg-60 Mg Tbmp.12hr, 1 EACH PO BID Prescribed by: FROY TINAJERO on 08/17/21145 Methylprednisolone (Medrol) 4 Mg Tab.ds.pk, 4 MG PO UD Prescribed by: FROY TINAJERO on 08/17/21145 Prednisone (Prednisone) 20 Mg Tab, 40 MG PO DAILY Prescribed by: MARY LIVINGSTON on 01/12/20 1207 Triamcinolone Acetonide (Nasacort) 55 Mcg [place], 2 SPRAYS NS BID Prescribed by: FROY TINAJERO on 08/17/21 0150 Review of Systems Review of Systems Constitutional: no symptoms reported EENTM: no symptoms reported Respiratory: no symptoms reported Cardiovascular: see HPI Gastrointestinal: see HPI Genitourinary: no symptoms reported : No Musculoskeletal: no symptoms reported Skin: no symptoms reported Psychiatric/Neurological: See HPI Hematologic/Lymphatic: No Symptoms Reported Immunological/Allergic: no symptoms reported Past Biahfcv-Buqksy-Zrmmxs Hx Patient Social History Tobacco Use?: No Substance use?: No Alcohol Use?: Yes Alcohol type: Beer Alcohol Frequency: Once in a while Pt feels they are or have been: No Immunizations Up To Date Influenza Vaccine Up-to-Date: Yes; Up-to-Date First/Initial COVID19 Vaccinat: unknown date Second COVID19 Vaccination Marco Antonio: unknown date Third COVID19 Vaccination Date: unknown date COVID19 Vaccine 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 Past Medical History Surgeries: Yes (C1 resection with correction of Chiari malformation) Gallbladder, Hysterectomy, Orthopedic Respiratory: No Cardiac: Yes Hypertension Neurological: Yes (History of Chiari malformation surgically corrected) Headaches /Migraines : 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 oz. 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-XII Norm as Tested Skin: Normal Color, Warm/Dry Progress/Results/Core Measures Suspected Sepsis SIRS Temperature: Pulse: 86 Respiratory Rate: 18 Laboratory Tests 11/21/21 21:19: White Blood Count 7.3 Blood Pressure 103 /67 Mean: 105 Laboratory Tests 11/21/21 21:19: Creatinine 1.05, Platelet Count 244, Total Bilirubin 0.5 Results/Orders Lab Results Laboratory Tests Test 11/21/21 21:12 11/21/21 21:19 11/21/21 23:40 Range/Units Influenza Type A (RT-PCR) Not Detected Not Detecte Influenza Type B (RT-PCR) Not Detected Not Detecte SARS-CoV-2 RNA (RT-PCR) Not Detected Not Detecte White Blood Count 7.3 4.3-11.0 10^3/uL Red Blood Count 4.26 3.80-5.11 10^6/uL Hemoglobin 12.5 11.5-16.0 g/dL Hematocrit 37 35-52 % Mean Corpuscular Volume 86 80-99 fL Mean Corpuscular Hemoglobin 29 25-34 pg Mean Corpuscular Hemoglobin Concent 34 32-36 g/dL Red Cell Distribution Width 12.3 10.0-14.5 % Platelet Count 244 130-400 10^3/uL Mean Platelet Volume 10.7 9.0-12.2 fL Immature Granulocyte % (Auto) 0 % Neutrophils (%) (Auto) 54 42-75 % Lymphocytes (%) (Auto) 38 12-44 % Monocytes (%) (Auto) 7 0-12 % Eosinophils (%) (Auto) 2 0-10 % Basophils (%) (Auto) 1 0-10 % Neutrophils # (Auto) 3.9 1.8-7.8 10^3/uL Lymphocytes # (Auto) 2.8 1.0-4.0 10^3/uL Monocytes # (Auto) 0.5 0.0-1.0 10^3/uL Eosinophils # (Auto) 0.1 0.0-0.3 10^3/uL Basophils # (Auto) 0.0 0.0-0.1 10^3/uL Immature Granulocyte # (Auto) 0.0 0.0-0.1 10^3/uL Sodium Level 140 135-145 MMOL/L Potassium Level 3.0 L 3.6-5.0 MMOL/L Chloride Level 104 98-107 MMOL/L Carbon Dioxide Level 20 L 21-32 MMOL/L Anion Gap 16 H 5-14 MMOL/L Blood Urea Nitrogen 18 7-18 MG/DL Creatinine 1.05 0.60-1.30 MG/DL Estimat Glomerular Filtration Rate 62 BUN/Creatinine Ratio 17 Glucose Level 106 H 70-105 MG/DL Calcium Level 9.0 8.5-10.1 MG/DL Corrected Calcium 8.9 8.5-10.1 MG/DL Total Bilirubin 0.5 0.1-1.0 MG/DL Aspartate Amino Transf (AST/SGOT) 12 5-34 U/L Alanine Aminotransferase (ALT/SGPT) 23 0-55 U/L Alkaline Phosphatase 78 40-136 U/L Total Protein 7.0 6.4-8.2 GM/DL Albumin 4.1 3.2-4.5 GM/DL Lipase 11 8-78 U/L Serum Alcohol 56 H <10 MG/DL Urine Color YELLOW Urine Clarity CLEAR Urine pH 6.0 5-9 Urine Specific [place] 1.010 L 1.016-1.022 Urine Protein NEGATIVE NEGATIVE Urine Glucose (UA) NEGATIVE NEGATIVE Urine Ketones NEGATIVE NEGATIVE Urine Nitrite NEGATIVE NEGATIVE Urine Bilirubin NEGATIVE NEGATIVE Urine Urobilinogen 0.2 < = 1.0 MG/DL Urine Leukocyte Esterase NEGATIVE NEGATIVE Urine RBC (Auto) NEGATIVE NEGATIVE Urine RBC NONE /HPF Urine WBC NONE /HPF Urine Crystals NONE /LPF Urine Bacteria NEGATIVE /HPF Urine Casts NONE /LPF Urine Mucus NEGATIVE /LPF Urine Culture Indicated NO My Orders Orders - CROW KELLY MD Ua Culture If Indicated (11/21/21 21:08) Covid 19 Inhouse Test (11/21/21 21:39) Influenza A And B By Pcr (11/21/21 21:39) Cbc With Automated Diff (11/21/21 21:40) Comprehensive Metabolic Panel (11/21/21 21:40) Lipase (11/21/21 21:40) Ed Iv/Invasive Line Start (11/21/21 21:40) Lactated Ringers (Lr 1000 Ml Iv Solution (11/21/21 21:45) Ondansetron Injection (Zofran Injectio (11/21/21 21:45) Ct Head Wo-R/O Stroke (11/21/21 21:40) Potassium Cl 10meq/50ml Ivpb (Kcl 10 Meq (11/21/21 22:00) Ns Iv 1000 Ml (Sodium Chloride 0.9%) (11/21/21 22:00) Ketorolac Injection (Toradol Injection) (11/21/21 22:15) Alcohol (11/21/21 22:28) Fentanyl Inj (Sublimaze Injection) (11/21/21 23:45) Scopolamine Patch (Transderm-Scop Patch) (11/21/21 23:45) Medications Given in ED Current Medications Medications Dose Ordered Sig/Michelet Route Start Time Stop Time Status Last Admin Dose Admin Fentanyl Citrate 50 mcg ONCE ONCE IVP 11/21/21 23:45 11/21/21 23:46 DC 11/21/21 23:44 50 MCG Ketorolac Tromethamine 15 mg ONCE ONCE IVP 11/21/21 22:15 11/21/21 22:16 DC 11/21/21 22:20 15 MG Lactated Ringer's 1,000 ml @ 0 mls/hr Q0M ONCE IV 11/21/21 21:45 11/21/21 21:46 DC 11/21/21 21:50 0 MLS/HR Ondansetron HCl 8 mg ONCE ONCE IVP 11/21/21 21:45 11/21/21 21:46 DC 11/21/21 21:50 8 MG Potassium Chloride 50 ml @ 50 mls/hr ONCE ONCE IV 11/21/21 22:00 11/21/21 23:05 DC 11/21/21 22:08 50 MLS/HR Scopolamine 1.5 mg ONCE ONCE TD 11/21/21 23:45 11/21/21 23:46 DC 11/21/21 23:44 1.5 MG Vital Signs/I&O 11/21/21 11/21/21 11/21/21 11/22/21 21:19 22:04 23:07 00:17 Temp 36.2 Pulse 86 88 85 80 Resp 18 18 18 18 B/P (MAP) 103/67 (79) 115/57 144/86 123/60 Pulse Ox 94 95 95 96 O2 Delivery Room Air Nasal Cannula O2 Flow Rate 2.00 11/22/21 00:00 Intake Total 50 ml Balance 50 ml Capillary Refill : Blood Pressure Mean: 105 Progress Note : Progress Note Zofran was given for nausea and she was hydrated with IV fluids. Scopolamine patch was placed for residual nausea. Due to the sudden and severe nature of her headache, CT of the head was obtained. This was viewed by me and discussed with the radiologist. No acute findings were appreciated. Potassium was replaced by IV route. Toradol and fentanyl were used for headache treatment. Patient did not feel she would tolerate her symptoms well at home. She was admitted to the hospital for symptom management and further replacement of potassium. Diagnostic Imaging Diagonstic Imaging: CT Plain Films/CT/US/NM/MRI: head Comments CT head viewed by me and report reviewed. See report below: NAME: JONY FRANKLIN [facility] REC#: [id number] PT STATUS: REG ER : 1965 PHYSICIAN: CROW KELLY MD ADMIT DATE: 11/21/21/ER Signed Date of Exam:11/21/21 CT HEAD WO-R/O STROKE PROCEDURE: CT head wo r/o stroke. TECHNIQUE: Multiple contiguous axial images were obtained through the brain without the use of intravenous contrast. Auto Exposure Controls were utilized during the CT exam to meet ALARA standards for radiation dose reduction. INDICATION: 56-year-old female, sudden onset severe headache, nausea and vomiting, history of migraines. CORRELATION: None FINDINGS: There is no midline shift or mass effect. The ventricles and sulci are unremarkable. No evidence for acute intracranial hemorrhage, abnormal extra-axial fluid collections or cerebral edema is present. The basilar cisterns are unremarkable. The bony calvarium is intact. Incomplete closure posterior C1 arch, likely developmental. The visualized paranasal sinuses and mastoid air cells are clear. IMPRESSION: Negative appearing noncontrast CT of the head. Dictated by: Dictated on workstation # [id number] Dict: 11/21/212207 Trans: 11/21/212343 DO [id number] Interpreted by: ELIZABET TUCKER DO Electronically signed by: ELIZABET TUCKER DO 11/21/214 Departure Communication (Admissions) Time/Spoke to Admitting Phy: 00:16 Dr. Weems Impression Primary Impression: Hypokalemia Additional Impressions: Nausea vomiting and diarrhea Acute headache Qualified Codes: R51.9 - Headache, unspecified Disposition: ADMITTED INPATIENT Condition: Improved Admissions Decision to Admit Reason: Admit from ER (General) Decision to Admit/Date: Nov 22, 2021 Time/Decision to Admit Time: 00:16 Departure-Patient Inst. Referrals: DURAN MEDINA DO (PCP/Family) Primary Care Physician Copy Copies To 1: DURAN MEDINA JOSHUA T MD Nov 22, 2021 00:16
[2021-11-22] MEDS ORDERED: NS IV 1000 ML 1,000 ML ONE (01:00)
[2021-11-22 01:06] VITALS: BP 148/80
[2021-11-22] MEDS ORDERED: fentaNYL INJ 100 MCG/2 ML AMP ONE (01:19)
[2021-11-22] MEDS: fentaNYL INJ 100 MCG/2 ML AMP IVP PRN ×3 (01:22→14:01)
[2021-11-22] MEDS: POTASSIUM CL 10MEQ/50ML IVPB 50 ML IV SCH ×3 (01:40→03:44)
[2021-11-22] MEDS: NS IV 1000 ML 1,000 ML IV SCH ×2 (01:42→09:02)
[2021-11-22] MEDS ORDERED: KETOROLAC 15 MG/ML VIAL IV PRN (01:45)
[2021-11-22] MEDS ORDERED: NS IV 1000 ML 1,000 ML IV SCH (01:45)
[2021-11-22 03:33] VITALS: BP 116/65
[2021-11-22] MEDS: ONDANSETRON 4 MG/2 ML (SDV) Z0FRAN IV PRN ×2 (03:44→14:01)
[2021-11-22 05:55] LABS: BASOPHILS % (AUTO) 1 % (0-10); EOSINOPHILS # (AUTO) 0.1 10^3/uL (0.0-0.3); EOSINOPHILS % (AUTO) 1 % (0-10); HEMATOCRIT 36 % (35-52); HEMOGLOBIN 11.8 g/dL (11.5-16.0); LYMPHOCYTES % (AUTO) 30 % (12-44); MEAN CORPUSCULAR HEMOGLOBIN 29 pg (25-34); MEAN CORPUSCULAR HGB CONC 33 g/dL (32-36); MEAN CORPUSCULAR VOLUME 89 fL (80-99); MEAN PLATELET VOLUME 10.6 fL (9.0-12.2); MONOCYTES # (AUTO) 0.5 10^3/uL (0.0-1.0); MONOCYTES % (AUTO) 7 % (0-12); NEUTROPHILS % (AUTO) 61 % (42-75); PLATELET COUNT 204 10^3/uL (130-400); WHITE BLOOD COUNT 6.6 10^3/uL (4.3-11.0)
[2021-11-22 06:27] LABS: CALCIUM 8.4 MG/DL (8.5-10.1); CREATININE SERUM 0.84 MG/DL (0.60-1.30); POTASSIUM 4.5 MMOL/L (3.6-5.0)
[2021-11-22 08:00] VITALS: BP 126/61
[2021-11-22 12:00] VITALS: BP 143/80
[2021-11-22] MEDS ORDERED: IBUP-2185 PO (13:06)
[2021-11-22] MEDS ORDERED: MAGN400T39 PO (13:06)
[2021-11-22] MEDS ORDERED: META800T PO (13:06)
[2021-11-22] MEDS ORDERED: LISI5TAB20 PO (13:06)
[2021-11-22] MEDS ORDERED: ACET-2267 PO (13:06)
[2021-11-22] MEDS ORDERED: VILA20TA PO (13:06)
--- NOTE | 2021-11-22 13:15 | History & Physical-Hospitalist ---
History of Present Illness HPI/Chief Complaint Patient is 56-year-old female with past medical history of migraines who presented to the emergency department due to nausea and vomiting. She states she was out to eat with family at [employer] and felt well until after she ate when she abruptly got sick to her stomach. She states she went to the bathroom there and was so sick she was laying on the floor of the public bathroom. She complains about nausea and vomiting along with diarrhea prompting her to seek evaluation in the emergency department. She was found to be hypokalemic and had intractable nausea and was admitted for further management. This morning she reports feeling much better and would like to try eating some breakfast. Source: patient Date Seen 11/22/21 Time Seen by a Provider: 08:45 Attending Physician Aurelio Medina DO PCP Admitting Physician: Parveen Weems MD Attending Physician: Parveen Weems MD Referring Physician Date of Admission Nov 22, 2021 at 00:25 Home Medications & Allergies Home Medications Reviewed patient Home Medication Reconciliation performed by pharmacy medication reconciliations loom technician and/or nursing. Patients Allergies have been reviewed. Allergies Allergies Coded Allergies promethazine (Verified Allergy, Unknown, 01/13/20) Past Zhhuunu-Dweltw-Jodzgq Hx Patient Social History Tobacco Use?: No Substance use?: No Alcohol Use?: Yes Alcohol type: Beer Alcohol Frequency: Once in a while Pt feels they are or have been: No Immunizations Up To Date First/Initial COVID19 Vaccinat: unknown date Second COVID19 Vaccination Marco Antonio: unknown date Tetanus Booster (TDap): Unknown Current Status status: No status: No Advance Directives: No Communicates: Verbally Primary Language: Czech Preferred Spoken Language: Czech Is interpretation needed?: No Implanted or Applied Medical D: None Past Medical History Surgeries: Gallbladder, Hysterectomy, Orthopedic Hypertension 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, 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 Blood Disorders: No Family Medical History Reviewed Nursing Family Hx No Pertinent Family Hx Review of Systems Constitutional: No chills, No fever, No malaise EENTM: No blurred vision, No double vision Respiratory: No cough, No short of breath Cardiovascular: no symptoms reported Gastrointestinal: see HPI, abdominal pain, diarrhea, nausea, vomiting Genitourinary: no symptoms reported Musculoskeletal: no symptoms reported Skin: no symptoms reported Psychiatric/Neurological: No Symptoms Reported Physical Exam Physical Exam Vital Signs Vital Signs - First Documented 11/21/21 11/21/21 11/22/21 21:19 23:07 00:17 Temp 36.2 Pulse 86 Resp 18 B/P (MAP) 103/67 (79) Pulse Ox 94 O2 Delivery Room Air O2 Flow Rate 2.00 Capillary Refill : Height, Weight, BMI Height: '" Weight: lbs. oz. kg; 30.68 BMI Method: General Appearance: No Apparent Distress, WD/WN HEENT: PERRL/EOMI, Moist Mucous Membranes Neck: Normal Inspection, Supple Respiratory: Lungs Clear, No Accessory Muscle Use, No Respiratory Distress Cardiovascular: Regular Rate, Rhythm, No JVD, No Murmur Gastrointestinal: Normal Bowel Sounds, Non Tender, Soft Extremity: No Calf Tenderness, No Pedal Edema Neurologic/Psychiatric: Alert, Oriented x3, Normal Mood/Affect Skin: Normal Color, Warm/Dry Results Results/Procedures Labs Laboratory Tests 11/21/21 21:19 11/22/21 05:33 Patient resulted labs reviewed. Imaging: Reviewed Imaging Report Imaging [facility] [place] NAME: JONY FRANKLIN [facility] REC#: [id number] PT STATUS: REG ER : 1965 PHYSICIAN: CROW KELLY MD ADMIT DATE: 11/21/21/ER Signed Date of Exam:11/21/21 CT HEAD WO-R/O STROKE PROCEDURE: CT head wo r/o stroke. TECHNIQUE: Multiple contiguous axial images were obtained through the brain without the use of intravenous contrast. Auto Exposure Controls were utilized during the CT exam to meet ALARA standards for radiation dose reduction. INDICATION: 56-year-old female, sudden onset severe headache, nausea and vomiting, history of migraines. CORRELATION: None FINDINGS: There is no midline shift or mass effect. The ventricles and sulci are unremarkable. No evidence for acute intracranial hemorrhage, abnormal extra-axial fluid collections or cerebral edema is present. The basilar cisterns are unremarkable. The bony calvarium is intact. Incomplete closure posterior C1 arch, likely developmental. The visualized paranasal sinuses and mastoid air cells are clear. IMPRESSION: Negative appearing noncontrast CT of the head. Dictated by: Dictated on workstation # [id number] Dict: 11/21/212207 Trans: 11/21/214 DO [id number] Interpreted by: ELIZABET TUCKER DO Electronically signed by: ELIZABET TUCKER DO 11/21/21 2344 Assessment/Plan Admission Diagnosis Intractable nausea and vomiting Admission Status: Observation Assessment and Plan Intractable nausea and vomiting Received zofran and scopolamine Feeling better Likely gastroenteritis DC if able to tolerate diet Diagnosis/Problems Diagnosis/Problems (1) Gastroenteritis (2) Nausea vomiting and diarrhea Status: Acute (3) Acute headache Status: Acute Qualifiers: Headache type: unspecified Intractability: not intractable Qualified Codes: R51.9 - Headache, unspecified (4) Hypokalemia Status: Acute JR STONE MD Nov 22, 2021 13:15
[2021-11-22] MEDS ORDERED: ONDA4TAB11 PO (14:01)
--- NOTE | 2021-11-22 14:02 | Discharge Inst-Simple/Standard ---
Discharge Inst-Standard Discharge Medications New, Converted or Re-Newed RX: Transmitted to Pharmacy Patient Instructions/Follow Up Plan of Care/Instructions/FU: Please continue to take your medications as written. Please follow up with your primary care doctor to follow up this hospital stay. Activity as Tolerated: Yes Discharge Diet: No Restrictions Return to The Hospital For: Chest pain, shortness of breath, fever, weakness, if you feel you are getting worse. JR STONE MD Nov 22, 2021 14:02
== END 2021-11-22 14:03 | disposition home or self-care (01) ==
LOC: EDUNIT# 20:44 → ER 20:46 → 4TH 20:47 → UNDOADMOB 11-22 00:25 → 4TH 11-22 00:25 → UNDODISOB 11-22 14:40
PROVIDERS: ADMIT Internal Medicine; ATTEND Internal Medicine
DX: E87.6 Hypokalemia (principal); K52.9 Noninfective gastroenteritis and colitis, unspecified; R51.9 Headache, unspecified
CPT/HCPCS: 36415; 70450; 80048; 80053; 80320; 81000; 83690; 85025; 87636; 96361; 96366; 96374; 96375; 96376; G0378

== ENCOUNTER 2023-02-12 10:40 | Emergency (ER) | payer OTHER ==
[~2023-02-12] VITALS: Ht 177.8 cm; Wt 99.8 kg
[~2023-02-12 10:40] MED LIST changes: +ACET-2267 PO; +IBUP-2185 PO; +LISI5TAB20 PO; +MAGN400T39 PO; +META800T PO; +ONDA4TAB11 PO; +VILA20TA PO
[2023-02-12] MEDS ORDERED: NS IV 1000 ML 1,000 ML IV SCH (11:15)
[2023-02-12] MEDS ORDERED: METOCLOPRAMIDE INJ 10 MG/2 ML IVP ONE (11:15)
[2023-02-12] MEDS ORDERED: KETOROLAC INJ 15 MG/ML VIAL IVP ONE (11:15)
[2023-02-12] MEDS ORDERED: diphenhydrAMINE INJ 50 MG/ML VIAL IVP ONE (11:15)
--- NOTE | 2023-02-12 11:18 | ED Headache ---
General Chief Complaint: Abdominal/GI Problems Stated Complaint: NAUSEA Nursing Triage Note: VERBALIZES NAUSEA SINCE SHE WOKE UP THIS AM AROUND 0600, STATES SHE TOOK 2 DOSES OF ZOFRAN LAST AT 0945 WITH NO RELIEF. ALSO C/O HEADACHE AND STATES LAST TIME THIS HAPPENED HER POTASSIUM WAS LOW. Source: patient Exam Limitations: no limitations (NU COOPER APRN) History of Present Illness Date Seen by Provider: Feb 12, 2023 Time Seen by Provider: 10:59 Initial Comments 56-year-old female presents to the ER with complaint of nausea and headache starting this morning. She has taken 2 doses of her Zofran which have not helped. Last dose was at 9:45 AM. She reports history of migraines, states that this one is different because it started out with nausea prior to the headache. Denies that this is the worst headache of her life. She states that the nausea is actually bothering her more than the headache. She reports that nausea is worse with movement. Denies dizziness, but states she feels unsteady with walking. She reports that in the past she has had similar symptoms when her potassium was low, and that is why she came into the ER. She denies fevers, dizziness, chest pain, shortness of air, abdominal pain, diarrhea, dysuria. (NU COOPER APRN) Allergies and Home Medications Allergies Coded Allergies: promethazine (Verified Allergy, Unknown, 02/12/23) sulfamethoxazole (Verified Allergy, Unknown, 02/12/23) trimethoprim (Verified Allergy, Unknown, 02/12/23) Patient Home Medication List Home Medication List Reviewed: Yes (NU COOPER APRN) Acetaminophen (Tylenol Extra Strength) 500 Mg Tablet, 1,000 MG PO Q8H PRN for PAIN-MILD (1-4), (Reported) Entered as Reported by: TSERING CHAVEZ on 11/22/21 1306 Ibuprofen (Ibuprofen) 200 Mg Capsule, 800 MG PO Q8H PRN for PAIN-SEE DOSE INSTRUCTIONS, (Reported) Entered as Reported by: TSERING CHAVEZ on 11/22/21 1306 Lisinopril (Lisinopril) 5 Mg Tablet, 5 MG PO HS, (Reported) Entered as Reported by: TSERING CHAVEZ on 11/22/21 1306 Magnesium Oxide (Magnesium) 400 Mg Magnesium Tablet, 400 MG PO HS PRN for LEG CRAMPS, (Reported) Entered as Reported by: TSERING CHAVEZ on 11/22/21 1306 Metaxalone (Metaxalone) 800 Mg Tablet, 800 MG PO Q8H PRN for PAIN-BREAKTHROUGH, (Reported) Entered as Reported by: TSERING CHAVEZ on 11/22/21 1306 Nitrofurantoin Macrocrystal (Nitrofurantoin) 100 Mg Capsule, 100 MG PO BID Prescribed by: Nu Ramos on 02/12/23 1202 Ondansetron (Ondansetron Odt) 4 Mg Tab.rapdis, 4 MG PO Q4H Prescribed by: JR STONE on 11/22/21 1401 Vilazodone Hydrochloride (Viibryd) 20 Mg Tablet, 20 MG PO HS, (Reported) Entered as Reported by: TSERING CHAVEZ on 11/22/21 1306 Review of Systems Review of Systems Constitutional: see HPI (NU COOPER APRN) Past Bqwqanp-Oohdzr-Hudfft Hx Patient Social History Tobacco Use?: No Use of E-Cig and/or Vaping dev: No Substance use?: No Alcohol Use?: No Pt feels they are or have been: No (NU COOPER APRN) Immunizations Up To Date Influenza Vaccine Up-to-Date: No; Not Current First/Initial COVID19 Vaccinat: 3 SHOTS Second COVID19 Vaccination Marco Antonio: unknown date Third COVID19 Vaccination Date: unknown date (NU COOPER APRN) Past Medical History Surgery/Hospitalization HX: HTN, DEPRESSION MULTIPLE SURGERIES, NONE LAST 3 MONTHS Surgeries: Yes (C1 resection with correction of Chiari malformation) Gallbladder, Hysterectomy, Orthopedic Respiratory: No Cardiac: Yes Hypertension Neurological: Yes (History of Chiari malformation surgically corrected) Headaches /Migraines [employer] History: Hysterectomy, Menopausal Genitourinary: No Gastrointestinal: No Musculoskeletal: No Endocrine: No HEENT: No Cancer: No Psychosocial: No Integumentary: No Blood Disorders: No (NU COOPER APRN) Family Medical History No Pertinent Family Hx (NU COOPER APRN) Physical Exam Vital Signs Vital Signs - First Documented 02/12/23 10:45 Temp 36.3 Pulse 64 Resp 18 B/P (MAP) 170/85 (113) Pulse Ox 97 O2 Delivery Room Air (CROW KELLY MD) Vital Signs Capillary Refill : Less Than 3 Seconds (NU COOPER APRN) Height, Weight, BMI Height: '" Weight: lbs. oz. kg; 31.00 BMI Method: General Appearance: WD/WN, mild distress HEENT: PERRL/EOMI, TMs normal Neck: full range of motion, supple, normal inspection Cardiovascular: regular rate, rhythm Respiratory: lungs clear, normal breath sounds, no respiratory distress, no accessory muscle use Gastrointestinal: normal bowel sounds, non tender, soft Extremities: normal range of motion, normal inspection Psychiatric: alert, oriented x 3 Cra[place] Nerves: normal hearing, normal speech, PERRL Coordination/Gait: normal gait Motor/Sensory: no motor deficit, no sensory deficit Skin: normal color, warm/dry (NU COOPER APRN) Progress/Results/Core Measures Results/Orders Lab Results Laboratory Tests Test 02/12/23 10:55 02/12/23 11:07 Range/Units White Blood Count 5.1 4.3-11.0 10^3/uL Red Blood Count 4.41 3.80-5.11 10^6/uL Hemoglobin 13.0 11.5-16.0 g/dL Hematocrit 40 35-52 % Mean Corpuscular Volume 90 80-99 fL Mean Corpuscular Hemoglobin 30 25-34 pg Mean Corpuscular Hemoglobin Concent 33 32-36 g/dL Red Cell Distribution Width 12.3 10.0-14.5 % Platelet Count 233 130-400 10^3/uL Mean Platelet Volume 10.2 9.0-12.2 fL Immature Granulocyte % (Auto) 0 % Neutrophils (%) (Auto) 57 42-75 % Lymphocytes (%) (Auto) 33 12-44 % Monocytes (%) (Auto) 7 0-12 % Eosinophils (%) (Auto) 2 0-10 % Basophils (%) (Auto) 1 0-10 % Neutrophils # (Auto) 2.9 1.8-7.8 10^3/uL Lymphocytes # (Auto) 1.7 1.0-4.0 10^3/uL Monocytes # (Auto) 0.4 0.0-1.0 10^3/uL Eosinophils # (Auto) 0.1 0.0-0.3 10^3/uL Basophils # (Auto) 0.0 0.0-0.1 10^3/uL Immature Granulocyte # (Auto) 0.0 0.0-0.1 10^3/uL Sodium Level 139 135-145 MMOL/L Potassium Level 4.1 3.6-5.0 MMOL/L Chloride Level 105 98-107 MMOL/L Carbon Dioxide Level 26 21-32 MMOL/L Anion Gap 8 5-14 MMOL/L Blood Urea Nitrogen 15 7-18 MG/DL Creatinine 0.91 0.60-1.30 MG/DL Estimat Glomerular Filtration Rate 74 BUN/Creatinine Ratio 16 Glucose Level 102 70-105 MG/DL Calcium Level 8.8 8.5-10.1 MG/DL Corrected Calcium 8.7 8.5-10.1 MG/DL Total Bilirubin 0.6 0.1-1.0 MG/DL Aspartate Amino Transf (AST/SGOT) 16 5-34 U/L Alanine Aminotransferase (ALT/SGPT) 29 0-55 U/L Alkaline Phosphatase 84 40-136 U/L Total Protein 7.1 6.4-8.2 GM/DL Albumin 4.1 3.2-4.5 GM/DL Urine Color YELLOW Urine Clarity SLIGHTLY CLOUDY Urine pH 5.5 5-9 Urine Specific [place] 1.010 L 1.016-1.022 Urine Protein NEGATIVE NEGATIVE Urine Glucose (UA) NEGATIVE NEGATIVE Urine Ketones NEGATIVE NEGATIVE Urine Nitrite NEGATIVE NEGATIVE Urine Bilirubin NEGATIVE NEGATIVE Urine Urobilinogen 0.2 < = 1.0 MG/DL Urine Leukocyte Esterase 1+ H NEGATIVE Urine RBC (Auto) NEGATIVE NEGATIVE Urine RBC NONE /HPF Urine WBC 5-10 H /HPF Urine Squamous Epithelial Cells 25-50 H /HPF Urine Crystals NONE /LPF Urine Bacteria MODERATE H /HPF Urine Casts NONE /LPF Urine Mucus NEGATIVE /LPF Urine Culture Indicated YES (CROW KELLY MD) Micro Results Microbiology 02/12/23 Urine Culture - Final, Complete NO GROWTH (CROW KELLY MD) Vital Signs/I&O 02/12/23 02/12/23 10:45 12:11 Temp 36.3 Pulse 64 66 Resp 18 18 B/P (MAP) 170/85 (113) 150/75 Pulse Ox 97 98 O2 Delivery Room Air Room Air (CROW KELLY MD) Blood Pressure Mean: 113 Progress Progress Note : Progress Note Patient seen and evaluated, resting in bed, mild distress. Based on exam and symptoms, work-up initiated included CBC, CMP, UA. Toradol, Reglan, Benadryl, IV fluids ordered for migraine cocktail. 1159 Labs reviewed. CBC and CMP grossly normal. Urinalysis shows 1+ leukocytes, 5-10 WBCs, 25-50 squamous epithelial cells, moderate bacteria. Will go ahead and treat for urinary tract infection. Patient reevaluated, reports that her headache and nausea are significantly improved. Symptoms are likely related to migraine. Results discussed with patient. Patient is stable for discharge. Discharge instructions and return precautions provided. (NU COOPER APRN) Departure Impression Primary Impression: Migraine Additional Impressions: Nausea Urinary tract infection Disposition: HOME, SELF-CARE Condition: Stable Departure-Patient Inst. Decision time for Depature: 12:00 (NU COOPER APRN) Referrals: DURAN DAVIS DO (PCP/Family) Primary Care Physician Patient Instructions: Migraines in adults Add. Discharge Instructions: Complete full course of antibiotic as prescribed. Follow-up with your primary care provider. Return for any new, concerning, or worsening symptoms. All discharge instructions reviewed with patient and/or family. Voiced understanding. Scripts Nitrofurantoin Macrocrystal (Nitrofurantoin) 100 Mg Capsule 100 MG PO BID for 5 Days, #10 CAP 0 Refills Prov: NU COOPER APRN 02/12/23 ATTENDING PHYSICIAN NOTE: I was physically present as attending physician in the emergency department during the care of this patient, but I was not directly involved in the decision making or delivery of care for this patient. (CROW KELLY MD) NU COOPER APRN Feb 12, 2023 11:18 CROW KELLY MD Feb 14, 2023 07:21
[2023-02-12 11:19] LABS: BASOPHILS % (AUTO) 1 % (0-10); EOSINOPHILS # (AUTO) 0.1 10^3/uL (0.0-0.3); EOSINOPHILS % (AUTO) 2 % (0-10); HEMATOCRIT 40 % (35-52); LYMPHOCYTES # (AUTO) 1.7 10^3/uL (1.0-4.0); LYMPHOCYTES % (AUTO) 33 % (12-44); MEAN CORPUSCULAR HEMOGLOBIN 30 pg (25-34); MEAN CORPUSCULAR HGB CONC 33 g/dL (32-36); MEAN CORPUSCULAR VOLUME 90 fL (80-99); MEAN PLATELET VOLUME 10.2 fL (9.0-12.2); MONOCYTES # (AUTO) 0.4 10^3/uL (0.0-1.0); MONOCYTES % (AUTO) 7 % (0-12); NEUTROPHILS # (AUTO) 2.9 10^3/uL (1.8-7.8); NEUTROPHILS % (AUTO) 57 % (42-75); PLATELET COUNT 233 10^3/uL (130-400); WHITE BLOOD COUNT 5.1 10^3/uL (4.3-11.0)
[2023-02-12 11:24] LABS: ALBUMIN 4.1 GM/DL (3.2-4.5); POTASSIUM 4.1 MMOL/L (3.6-5.0)
[2023-02-12 11:25] LABS: CALCIUM 8.8 MG/DL (8.5-10.1)
[2023-02-12 11:27] LABS: TOTAL PROTEIN 7.1 GM/DL (6.4-8.2)
[2023-02-12 11:28] LABS: BILIRUBIN,TOTAL 0.6 MG/DL (0.1-1.0)
[2023-02-12 11:30] LABS: CREATININE SERUM 0.91 MG/DL (0.60-1.30)
[2023-02-12 11:31] LABS: BACTERIA,URINE MODERATE /HPF; BILIRUBIN,URINE NEGATIVE (NEGATIVE); CLARITY,URINE SLIGHTLY CLOUDY; COLOR,URINE YELLOW; GLUCOSE, URINE (UA) NEGATIVE (NEGATIVE); KETONES,URINE NEGATIVE (NEGATIVE); LEUKOCYTE ESTERASE ,URINE 1+ (NEGATIVE); NITRITE,URINE NEGATIVE (NEGATIVE); PH,URINE 5.5 (5-9); PROTEIN,URINE NEGATIVE (NEGATIVE); SQUAMOUS EPITHELIAL CELL,UR 25-50 /HPF
[2023-02-12] MEDS ORDERED: NITR100C PO (12:02)
[2023-02-12 12:11] VITALS: BP 150/75
== END 2023-02-12 12:11 | disposition home or self-care (01) ==
LOC: EDUNIT# 10:40 → ER 10:43
DX: G43.909 Migraine, unspecified, not intractable, without status migrainosus (principal); N39.0 Urinary tract infection, site not specified
CPT/HCPCS: 36415; 80053; 81000; 85025; 87088; 96361; 96374; 96375